=== PATIENT | female | born 1995 | race Caucasian/White ===

== ENCOUNTER 2019-01-07 16:12 | Emergency (ER) | payer BC ==
[~2019-01-07] VITALS: Ht 165.1 cm; Wt 56.8 kg
[2019-01-07 16:21] VITALS: Ht 165.1 cm; Wt 56.8 kg
[2019-01-07] MEDS ORDERED: TORADOL10 MG PO (17:35)
[2019-01-07 17:46] VITALS: BP 115/68
== END 2019-01-07 17:47 | disposition home or self-care (01) ==
LOC: D.ER 16:12
DX: M54.2 Cervicalgia (principal); V49.49XA Driver injured in collision with other motor vehicles in traffic accident, initial encounter; R51 Headache; M54.5 Low back pain